=== PATIENT | female | born 1935 | race Caucasian/White ===

== ENCOUNTER 2016-11-29 14:54 | Outpatient (CLI) | payer MEDICARE | END 2016-11-29 23:59 | disposition home or self-care (01) | LOC: RAD 14:54 | PROVIDERS: ATTEND Family Medicine | DX: R05 Cough (principal) | CPT/HCPCS: 71020-TC ==

== ENCOUNTER 2017-01-09 12:29 | Outpatient (CLI) | payer MEDICARE | END 2017-01-09 23:59 | disposition home or self-care (01) | LOC: RAD 12:29 | PROVIDERS: ATTEND Family Medicine | DX: M19.072 Primary osteoarthritis, left ankle and foot (principal); M20.12 Hallux valgus (acquired), left foot | CPT/HCPCS: 73630-TC ==